=== PATIENT | male | born 2005 | race African-American/Black ===

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

== ENCOUNTER 2025-02-15 14:29 | Emergency (ER) | payer MEDICAID, OTHER ==
[~2025-02-15] VITALS: Ht 172.7 cm; Wt 59.1 kg
--- NOTE | 2025-02-15 15:54 | DVH ---
CHEST TWO VIEWS REASON FOR EXAM: Positive PPD test COMPARISON: None TECHNIQUE: PA and lateral views of the chest are obtained. FINDINGS: The cardiomediastinal silhouette is within normal limits for size. There is no focal airsp adalberto disease. There is no pleural effusion. No acute osseous abnormality is identified. IMPRESSION: No radiographic evidence of acute cardiopulmonary process.
--- NOTE | 2025-02-15 15:59 | ED.PDOC ---
History of Present Illness HPI Comments 20y M who presents to the ED for chief complaint of med clearance. Pt states he got a TB test last Thursday for clearance for new job. Pt states he noted increased induration at site of TB site and came for further evaluation. Pt denies any associated shortness of breath, fever, chills, night sweats or associated symptoms. Pt otherwise denies any other symptoms at this time. Chief Complaint: Medical Clearance Time Seen by MD: 15:30 Primary Care Provider: none Reviewed Notes: Medications, Allergies Allergies: Coded Allergies: No Known Drug Allergy (Verified Allergy, Unknown, 02/15/25) Information Source: Patient, Relative Mode of Arrival: Ambulatory Past Medical History PAST MEDICAL HISTORY: Denies Surgical History: Denies all surgeries Family History Family History: Unknown Social History Smoker: Non-Smoker Alcohol: Denies ETOH Use Drugs: Denies Drug Use Lives In: Home All Other Systems: Reviewed and Negative (see HPI) Physical Exam General Appearance: No Apparent Distress, Normal HEENT: Normal ENT Inspection, Pharynx Normal, TMs Normal Neck: Full Range of Motion, Non-Tender, Normal, Normal Inspection Respiratory: Chest Non-Tender, Lungs Clear, No Accessory Muscle Use, No Respiratory Distress, Normal Breath Sounds Cardiovascular: No Edema, No JVD, No Murmur, No Gallop, Normal Peripheral Pulses, Regular Rate/Rhythm Breast Exam: Deferred Gastrointestinal: No Organomegaly, Non Tender, No Pulsatile Mass, Normal Bowel Sounds, Soft Genitalia: Deferred Pelvic: Deferred Rectal: Deferred Extremities: No calf tenderness, Normal capillary refill, Normal inspection, Normal range of motion, Non-tender, No pedal edema Neurologic: Alert, on site manager II-XII nml as Tested, No Motor Deficits, Normal Affect, Normal Mood, No Sensory Deficits Cerebellar Function: Normal Reflexes: Normal Skin: Dry, Normal Color, Warm Peripheral Pulses: 1+ carotid (R), 1+ carotid (L) Lymphatic: No Adenopathy Was a procedure done? Was a procedure done?: No Differential Dx Considerations may include: TB clearance, X-Ray, Labs, Meds, VS Vital Signs Date Time Temp Pulse Resp B/P (MAP) Pulse Ox O2 Delivery O2 Flow Rate FiO2 02/15/25 14:31 98.0 80 14 115/74 99 98.0 [facility] [id number] [place] [id number] Ph: [phone] DIAGNOSTIC IMAGING Diagnostic Imaging Report : [id number] Signed PATIENT: LYNSEY SMITH ACCT: [id number] UNIT: [id number] : 2005 LOC: ER ROOM / BED: / AGE / SEX: 20 / M ADM STATUS: REG ER SERVICE 18 ORDERING PHYSICIAN: CHRISTINA ALFONSO MD PROCEDURE(s): CXR2 - CHEST TWO VIEWS ROUTINE REASON: Positive PPD test ORDER NUMBER(s): [id number], ACCESSION NUMBER(s): [id number] CHEST TWO VIEWS REASON FOR EXAM: Positive PPD test COMPARISON: None TECHNIQUE: PA and lateral views of the chest are obtained. FINDINGS: The cardiomediastinal silhouette is within normal limits for size. There is no focal airspace disease. There is no pleural effusion. No acute osseous abnormality is identified. IMPRESSION: No radiographic evidence of acute cardiopulmonary process. ATED BY: SIVAKUMAR JANSEN MD DICTATED DATE/TIME: 02/15/251550 SIGNED BY: SIVAKUMAR JANSEN MD SIGNED DATE/TIME: 02/15/251550 CC: X-Ray, Labs, Meds, VS Comment Patient presented to the ER with a possible positive TB test I mouth think it is probably allergic reaction Chest x-ray is normal Patient will have his medical clearance for school Time of 1ST Reevaluation: 16:00 Reevaluation 1ST: Unchanged Patient Education/Counseling: Diagnosis, Treatment Family Education/Counseling: Diagnosis, Treatment SEPSIS Sepsis Screen Date sepsis recognized/suspect: Feb 15, 2025 Time Sepsis recognized/suspect: 1434 Recent Procedure: No On Antibiotic Therapy: No Respiratory Rate >20: No Heart Rate >90: No Temp<36 C (96.8 F) or >38.3 C: No SBP <90 or MAP <65 mmHG: No New Acute Mental Status Change: No Is the patient on CPAP, BIPAP,: No Physician Orders Chest Two Views Routine (02/15/25 15:19) Vital Signs Date Time Temp Pulse Resp B/P (MAP) Pulse Ox O2 Delivery O2 Flow Rate FiO2 02/15/25 14:31 98.0 80 14 115/74 99 98.0 Departure 1 Departure Time of Disposition: 16:09 Impression: Primary Impression: Healthy adolescent on routine physical examination Disposition: 01 HOME / SELF CARE / HOMELESS Condition: Good Additional Instructions: This is cleared for school Discharged With: Self, Relative (Mother) Critical Care Note Critical Care Time?: No Stability Stability form required: No Heart Score Heart Score: Heart Score Response (Comments) Value History N/A 0 EKG N/A 0 Age <45 0 Risk Factors No known risk factors 0 Troponin N/A 0 Total 0 I personally scribed for CHRISTINA ALFONSO MD ([email or web address]) on 02/15/25 at 15:59. Electronically submitted by Jovany Ojeda ([employer]). I personally scribed for CHRISTINA ALFONSO MD ([email or web address]) on 02/15/25 at 16:00. Electronically submitted by Jovany Ojeda ([employer]). CHRISTINA ALFONSO MD Feb 15, 2025 15:59
[2025-02-15 16:29] VITALS: BP 95/69; PULSE 84; RESP 16; TEMP 97.9; O2SAT 99
== END 2025-02-15 16:28 | disposition home or self-care (01) ==
LOC: ER 14:29
DX: R76.11 Nonspecific reaction to tuberculin skin test without active tuberculosis (principal); Z11.1 Encounter for screening for respiratory tuberculosis; Z79.899 Other long term (current) drug therapy
CPT/HCPCS: 71046